=== PATIENT | male | born 1990 | race Caucasian/White ===

== ENCOUNTER 2019-01-10 19:17 | Emergency (ER) | payer BC, SELFPAY ==
[2019-01-10 19:18] VITALS: BP 167/103; PULSE 105; RESP 18; TEMP 36.7; O2SAT 100; BMI 26.7
--- NOTE | 2019-01-10 19:30 | US_ITS ---
HISTORY: Right-sided pain and swelling. No comparison imaging. 111 images. Real-time barcenas scale color Doppler pulse-wave Doppler images were obtained through the scrotum. Findings: Some fluid is present within the soft tissues of the scrotum superficial to the testis. This is likely a hydrocele. The right testis measures 2.9 x 5.5 x 2.9 cm Right testicular barcenas scale echotexture is heterogeneous with hypoechoic areas. Color Doppler imaging through the right testis suggests hyperemia. Pulse-wave Doppler imaging suggests arterial and venous flow within the right testicular parenchyma. The right epididymal head measures 19 x 11 mm. A tiny right epididymal cyst is present. The epididymis appears to be thickened and hyperemic on color Doppler and grayscale imaging. The left testis is more homogeneous in echotexture. Small left hydrocele is present. The left testis measures 4.8 x 2.4 x 2.9 cm. Color Doppler imaging suggests flow to the left testis, but it appears to be slightly less than that compared to the right. This is assuming color Doppler settings remains stable between the imaging of each testis which appears to be similar by the spectrum of the velocity optimized for the color Doppler imaging. Pulse-wave Doppler imaging suggests arterial flow and suggests probable venous flow within the left testicular parenchyma. The left epididymal head measures 10 x 8 mm. A small left epididymal cyst is present. Imaging of the left and right testis together in the same field of view suggests increased flow to the right testis. There is slight heterogeneity to the right testicular parenchymal echotexture compared to that of the left. US/Testicular with Arterial Flow IMPRESSION: Hyperemia to the right testis and minimal enlargement to the right testis compared to the left with slight enlargement of the right epididymis is well. The right epididymis also appears to be of increased vascularity and hyperemia compared to that of the left. These findings suggest right epididymoorchitis. No torsion. at 2035 Reported and signed by: Temo Ambrose MD Electronically Signed: Temo Ambrose MD at 20:34 EST Tel , Service support ,
[2019-01-10 19:54] LABS: Bacteria 0 SEEN /hpf (None Seen); Mucous, Urine 0 SEEN /hpf (<or=2+); Red Blood Cells-Urine 0 SEEN /hpf (0-5); Squamous Epithelial Cells - UA 0 SEEN /hpf (0-5); White Blood Cells 0 SEEN /hpf (0-5)
[2019-01-10 19:59] LABS: Color, Urine Yellow (Yellow); Glucose, Dipstick Normal (Normal); Ketone-Dipstick Negative (Negative); Leukocyte Esterase-Dipstick Negative /ul (Negative); Nitrite-Dipstick Negative (Negative); Occult Blood-Urine Negative /ul (Negative); Protein-Dipstick Negative (Negative); Urine Bilirubin Dipstick Negative (Negative); Urine Clarity Clear (Clear); Urine Urobilinogen Normal (Normal); Urine pH 6.5 (5.0 - 8.0)
--- NOTE | 2019-01-10 20:57 | ED.DCSUM_ITS ---
- ER Visit Summary Date of Service: 01/10/19 Chief Complaint: Testicular pain History of Present Illness: The patient is a 28 M with right testicular pain for 3 days. He reports pain and swelling. He was at the dentist getting a root canal. He thinks the way he was sitting caused irritation to his right testicle. No discharge, rash, or other associated symptoms. Physical Examination: Vitals unremarkable. Right testicle is diffusely tender and swollen. Test Results: Ultrasound shows right epididymal orchitis without torsion. Urinalysis negative. Gonorrhea and Chlamydia testing pending. Emergency Department Course and Treatment: Patient declined pain medicine. Ultrasound as above. No evidence to suggest torsion. History is not consistent with infection, but some trauma or irritation to the area, but given the possibility of occult infection, he was treated with ceftriaxone and doxycycline. Will refer to urology for follow-up. Treatment Plan: Continue antibiotics, doxycycline, for 10 days. Scrotal support, pain meds. Follow-up with urology. Disposition: Discharge Impression: 1. Right orchitis This note was generated with [employer] dictation software. It may contain incorrect words, spelling, and punctuation that were not noted in review of the chart prior to signing ED Disposition - Plan for ED Patient: Referrals: Nimo Lauren MD [Primary Care Provider] -
--- NOTE | 2019-01-10 20:59 | ED.DEP ---
ED Disposition - Plan for ED Patient: Instructions: Orchitis Prescriptions: Doxycycline 100 mg PO BID #20 cap Prescription Printed Naproxen [Naprosyn] 500 mg PO BID PRN #20 tab Prescription Printed Referrals: Yaron Dalal MD [STAFF PHYSICIAN] -
[2019-01-10 21:35] LABS: Chlamydia Trachomatis by PCR Negative (Negative); Neisserai gonorrhoeae by PCR Negative (Negative); Probe Check PASS; Sample Adequacy Control PASS; Specimen Processing Control PASS
[2019-01-10] MEDS: Ceftriaxone 500 MG Vial 250 MG IM (21:41)
[2019-01-10] MEDS: Doxycycline 100 MG CAPSULE PO (21:42)
[2019-01-10 21:44] VITALS: BP 181/89; PULSE 118; TEMP 38.2; O2SAT 100
[2019-01-10 22:04] VITALS: BP 164/79; PULSE 96; RESP 37; O2SAT 92
== END 2019-01-10 22:17 | disposition home or self-care (01) ==
PROVIDERS: Emergency Provider Emergency Medicine; Family Provider Family Medicine; PCP Family Medicine
DX: N45.2 Orchitis (principal)
CPT/HCPCS: 76870; 81001; 87491; 87591; 93976; 96372; 99283

== ENCOUNTER 2021-05-12 19:51 | Emergency (ER) | payer BC, SELFPAY ==
[2021-05-12 19:52] VITALS: BP 133/81; PULSE 84; RESP 16; TEMP 35.9; O2SAT 100; BMI 25.8
[2021-05-12] MEDS: 0.9% Normal Saline 1,000 ML 1000 ML IV (21:25)
[2021-05-12 21:51] LABS: Absolute Lymphocyte Count 1.98 X10^3/uL (0.83-4.51); Absolute Neutrophil Count 5.4 X10^3/uL (2.0-7.7); Basophil# 0.05 X10^3/uL; Basophil% 0.6 % (0-1); Eosinophil# 0.17 X10^3/uL; Hematocrit 45.2 % (40-54); Hemoglobin 16.6 g/dL (13.0-16.5); Lymphocyte # 1.98 X10^3/ul (0.83-4.51); Lymphocyte % 22.9 % (19-41); Mean Corp Hgb Conc 36.7 g/dL (32-36); Mean Corpuscular Hgb 30.9 pg (27.0-32.0); Mean Platelet Vol. 11.6 fl (6.2-12.0); Monocyte# 0.99 X10^3/uL; Monocyte% 11.5 % (0-10); NRBC Flagged by Analyzer 0 % (0-5); Neutrophil # 5.42 X10^3/uL (2.7-7.7); Neutrophil % 62.8 % (47-70); Platelet Count 177 K/mm3 (150-450); RBC Distribution Width CV 12.3 % (11.6-14.6); RBC Distribution Width SD 37.6 fl (35.1-43.9); Red Blood Count 5.38 M/mm3 (4.6-6.2); White Blood Count 8.6 K/mm3 (4.4-11.0)
[2021-05-12 22:18] LABS: ALB/GLOB Ratio 1.1 RATIO (0.9-2.4); AST(SGOT) 23 U/L (15-37); Alanine Aminotransfer ALT/SGPT 43 U/L (16-61); Alkaline Phosphatase 69 U/L (45-117); Anion Gap 6 (5-15); BUN 10 mg/dL (7-18); BUN/Creat Ratio 8.8 RATIO (10-20); Calcium,Total 9.3 mg/dL (8.5-10.1); Chloride 105 mmol/L (98-107); Creatinine, Serum 1.13 mg/dL (0.70-1.30); EST Glomerular Filtration Rate 81 mL/min (>60); Est Glom Filt Rate - Afr Amer 97 mL/min (>60); Estimated Creatinine Clearance 92.48 ml/min; Globulin 3.7 g/dL (2.2-4.2); Glucose 99 mg/dL (74-106); Potassium 3.3 mmol/L (3.5-5.1); Protein, Total 7.7 g/dL (6.4-8.2); Sodium Level 140 mmol/L (136-145)
--- NOTE | 2021-05-12 22:29 | EDS_ITS ---
HPI HPI - GI History of Present Illness Chief Complaint: GI Bleed Informant: patient Abdominal Pain/Flank Pain Onset: Days Context: Gradual Onset Timing: Intermittent Quality: Cramping Current Severity: Mild Maximum Severity: Mild Worsened by: Nothing Relieved by: Nothing Nausea/Vomiting/Emesis GI Symptom: Negative for Nausea and Vomiting Diarrhea/Melena/Hematochezia GI Symptom: Positive for Diarrhea Onset: Days Stool Quality: Positive for Watery Severity: Moderate Associated Symptoms Associated Symptoms: Negative for Dysuria, Frequency, Hematuria and Urgency Narrative Narrative: 30-year-old male no sniffing past medical or surgical history. States on Tuesday he started having diarrhea on Tuesday of fever as high as one 1.5. States he tried to hydrate as best he could but he felt like he was getting dehydrated. And said today he had some bright red blood per rectum. Small amount less than a shot glass. States he was having significant diarrhea 2-3 times an hour for around 24 to 48 hours. He has never had rectal bleeding before. He is on no blood thinners. He feels he may have had Salmonella. No recent travel. No surgery. No antibiotics. No recent hospitalization. Prior similar symptoms: No Recent Illness/Hospitalization: No PFSH PFSH Medical History no medical history no medical history Home Medications NK 05/12/21 [History Last Taken Unknown] Allergy/AdvReac Type Severity Reaction Status Date / Time Sulfa (Sulfonamide Allergy Unknown Verified 05/12/21 19:54 Antibiotics) Surgical History no surgical history no surgical history Social History Smoking Status: Never smoker ROS ROS ED ROS Narrative Diarrhea. Fever. Abdominal cramping. Review of Systems ROS Unobtainable: Denies due to encephalopathy Constitutional Constitutional ED: Reports fever(s) ENT ENT ED: Denies ear pain Cardiovascular Cardiovascular: Denies chest pain Respiratory/Chest Respiratory/Chest: Denies dyspnea Gastrointestinal Gastrointestinal: Reports abdominal pain and diarrhea; Denies constipation, melena, nausea or vomiting Genitourinary Genitourinary ED: Denies dysuria Musculoskeletal Musculoskeletal: Denies myalgias Integumentary Denies rash Neurologic Neurologic: Denies headache(s) Psychiatric Psychiatric: Denies depression Endocrine Endocrinology: Denies polyuria Hematologic/Lymphatic Hematologic/Lymphatic: Denies easy bruising EXAM Physical Exam Narrative Exam Narrative: 30-year-old male no acute distress. Vital signs are stable he is afebrile. Clinically looks well. H EENT exam unremarkable. Moist extremities. Neck nontender no lymphadenopathy. Lungs to auscultation bilaterally. Heart regular rate and rhythm no murmur. Rate about 85. Abdomen soft nondistended normal bowel sounds no peritoneal signs. No localizing tend erness. Extremities moves all 4. No rashes. No petechiae purpura. Back nontender. Neurologic exam normal. Const Vital Signs: 05/12/21 19:52 Temperature 96.7 F L Temperature Source Temporal Pulse Rate 84 Respiratory Rate 16 Blood Pressure 133/81 H Blood Pressure Mean 98 Pulse Ox 100 Oxygen Delivery Method Room Air Positive well nourished and well developed; Negative for obese, cachectic or contractures General Appearance ED: well developed; Negative for cachectic, contractures or pallor Nutritional Appearance: Negative for cachectic or obese HEENT Reports moist mucous membranes normocephalic; Negative for atraumatic Eyes PERRL and EOMs intact bilaterally General Eye ED: Negative for pale conjunctiva or scleral icterus Neck no lymphadenopathy, supple and no JVD General: Negative for tenderness Resp normal respiratory effort and clear to auscultation bilaterally Auscultation: Negative for rales, rhonchi or wheezes Cardio regular rate, regular rhythm, S1 normal heart sound, S2 normal heart sound and no murmurs GI non-tender, non-distended and no masses Auscultation: normoactive bowel sounds Palpation: soft; Negative for tender, guarding or rigid Back/Spine no CVA tenderness General Back: Negative for CVA tenderness Extremity full ROM General Extremety ED: Negative for edema or tenderness General Extremity: Negative for edema Neuro CN's II-XII intact bilaterally and moves all extremities Sensorium / Orientation: alert, oriented to person, oriented to place and oriented to time; Negative for orientation impaired, confused, lethargic or stuporous Motor Exam: strength 5/5 throughout Psych mental status grossly normal and thought process normal Mood & Affect: Negative for depressed Skin no wounds General Skin Exam: Negative for jaundice or pallor Lesions: no lesions Rashes: no rashes MDM MDM MDM Narrative Medical decision making narrative: 30-year-old male with a significant diarrhea and fever for 2 days. Treated with IV fluids for mild dehydration. Screening labs obtained. He had I discussed possibility of this being an inflammatory bowel disease but there is no family history and he is never had an episode like this before. His abdomen is benign I do not think he needs imaging tonight. He is comfortable with that not being done. Repeat exam patient is doing well at 10:38 PM. Abdomen is benign. He is comfortable being discharged home. Outpatient follow-up as needed. Lab Data Attestation: I reviewed the patient's lab results. Lab results narrative: CBC shows a white count 8 H&H of 16 and 45. Platelets are normal. Electrolytes show potassium of 3.3 normal anion gap of 6 normal BUN and creatinine of 10 and 1. Liver enzymes are normal. Labs: Laboratory Results - last 24 hr 05/12/21 05/12/21 21:03 21:03 WBC 8.6 RBC 5.38 Hgb 16.6 H Hct 45.2 MCV 84.0 MCH 30.9 MCHC 36.7 H RDW Std Deviation 37.6 RDW Coeff of Glenn 12.3 Plt Count 177 MPV 11.6 Immature Gran % (Auto) 0.200 Neut % (Auto) 62.8 Lymph % (Auto) 22.9 [place] % (Auto) 11.5 H Eos % (Auto) 2.0 Baso % (Auto) 0.6 Absolute Neuts (auto) 5.4 Absolute Lymphs (auto) 1.98 Nucleated RBC % 0 Sodium 140 Potassium 3.3 L Chloride 105 Carbon Dioxide 29.0 Anion Gap 6 BUN 10 Creatinine 1.13 Estim Creat Clear Calc 92.48 Est GFR (MDRD) Af Amer 97 Est GFR (MDRD) Non-Af 81 BUN/Creatinine Ratio 8.8 L Glucose 99 Calcium 9.3 Total Bilirubin 0.40 AST 23 ALT 43 Alkaline Phosphatase 69 Total Protein 7.7 Albumin 4.0 Globulin 3.7 Albumin/Globulin Ratio 1.1 Discharge Plan Triage Chief Complaint: GI Bleed ED Provider: Gopal Gale Dx/Rx/DC Orders Clinical Impression: Diarrhea, Viral enteritis, Hematochezia Instructions: ED Diarrhea, Viral (Adult) Prescriptions: No Action NK RF: 0 Primary Care Provider: Nimo Lauren Referrals: Nimo Lauren MD [Primary Care Provider] - 3-5 Days if not improving Activity Restrictions/Additional Instructions: Plenty of fluids and rest. Follow-up with your primary care physician if further rectal bleeding. Most likely this is a viral enteritis that caused her to have rectal bleeding. If the bleeding returns need further work-up such as a CAT scan and/or colonoscopy.
[2021-05-12 22:49] VITALS: BP 124/69; PULSE 73; RESP 15; O2SAT 98
== END 2021-05-12 22:50 | disposition home or self-care (01) ==
LOC: ED 21:29
PROVIDERS: Emergency Provider Emergency Medicine; PCP Family Medicine; Visit Provider Emergency Medicine
DX: A08.4 Viral intestinal infection, unspecified (principal); K92.1 Melena
CPT/HCPCS: 80053; 85025; 96360; 99282; J7030; A4216

== ENCOUNTER 2023-04-29 08:00 | Outpatient (RCR) | payer SELFPAY | END 2023-04-29 19:00 | disposition home or self-care (01) | LOC: PT 08:00 | PROVIDERS: PCP Family Medicine | DX: M25.519 Pain in unspecified shoulder (principal) ==

== ENCOUNTER → 2023-10-28 | Outpatient (CLI) | payer BC, SELFPAY ==
[2023-10-28 18:03] LABS: Absolute Lymphocyte Count 2.78 X10^3/uL (0.83-4.51); Absolute Neutrophil Count 2.8 X10^3/uL (2.0-7.7); Basophil# 0.05 X10^3/uL; Basophil% 0.8 % (0-1); Eosinophil# 0.14 X10^3/uL; Eosinophils% 2.3 % (0-5); Hematocrit 45.3 % (40-54); Hemoglobin 15.4 g/dL (13.0-16.5); Lymphocyte # 2.78 X10^3/ul (0.83-4.51); Lymphocyte % 45.2 % (19-41); Mean Corpuscular Hgb 29.7 pg (27.0-32.0); Mean Corpuscular Volume 87.3 fL (80-94); Mean Platelet Vol. 11.5 fl (6.2-12.0); Monocyte# 0.39 X10^3/uL; Monocyte% 6.3 % (0-10); NRBC Flagged by Analyzer 0 % (0-5); Neutrophil # 2.78 X10^3/uL (2.7-7.7); Neutrophil % 45.2 % (47-70); Platelet Count 196 K/mm3 (150-450); RBC Distribution Width CV 12.2 % (11.6-14.6); RBC Distribution Width SD 39.2 fl (35.1-43.9); Red Blood Count 5.19 M/mm3 (4.6-6.2); White Blood Count 6.2 K/mm3 (4.4-11.0)
[2023-10-28 18:52] LABS: ALB/GLOB Ratio 1.3 RATIO (0.9-2.4); AST(SGOT) 19 U/L (15-37); Alanine Aminotransfer ALT/SGPT 36 U/L (16-61); Albumin, Serum 4.3 g/dL (3.2-5.0); Alkaline Phosphatase 78 U/L (45-117); Anion Gap 5 (5-15); BUN 16 mg/dL (7-18); BUN/Creat Ratio 15.1 RATIO (10-20); Calcium,Total 9.9 mg/dL (8.5-10.1); Chloride 104 mmol/L (98-107); Creatinine, Serum 1.06 mg/dL (0.70-1.30); EST Glomerular Filtration Rate 85 mL/min (>60); Est Glom Filt Rate - Afr Amer 103 mL/min (>60); Globulin 3.4 g/dL (2.2-4.2); Glucose 94 mg/dL (74-106); Potassium 4.1 mmol/L (3.5-5.1); Protein, Total 7.7 g/dL (6.4-8.2); Sodium Level 140 mmol/L (136-145)
[2023-11-01 08:11] LABS: G6PD Quant Test 258 (127-427); Red Blood Cell Count Test/G6PD 5.26 x10E6/uL (4.14-5.80)
== END | disposition home or self-care (01) ==
PROVIDERS: PCP Family Medicine; Referring Provider Nurse Practitioner Family; Visit Provider Nurse Practitioner Family
DX: B60.09 Other babesiosis (principal); R53.83 Other fatigue
CPT/HCPCS: 80053; 82955; 85025

== ENCOUNTER → 2024-01-11 | Outpatient (CLI) | payer BC, SELFPAY ==
[2024-01-11 17:35] LABS: Absolute Lymphocyte Count 1.22 X10^3/uL (0.83-4.51); Absolute Neutrophil Count 3.5 X10^3/uL (2.0-7.7); Basophil# 0.05 X10^3/uL; Basophil% 0.9 % (0-1); Eosinophil# 0.03 X10^3/uL; Eosinophils% 0.6 % (0-5); Hematocrit 44.2 % (40-54); Hemoglobin 15.4 g/dL (13.0-16.5); Lymphocyte # 1.22 X10^3/ul (0.83-4.51); Lymphocyte % 23.1 % (19-41); Mean Corp Hgb Conc 34.8 g/dL (32-36); Mean Corpuscular Hgb 30.2 pg (27.0-32.0); Mean Corpuscular Volume 86.7 fL (80-94); Mean Platelet Vol. 10.4 fl (6.2-12.0); Monocyte# 0.48 X10^3/uL; Monocyte% 9.1 % (0-10); NRBC Flagged by Analyzer 0 % (0-5); Neutrophil % 66.1 % (47-70); Platelet Count 163 K/mm3 (150-450); RBC Distribution Width CV 12.2 % (11.6-14.6); RBC Distribution Width SD 38.6 fl (35.1-43.9); White Blood Count 5.3 K/mm3 (4.4-11.0)
[2024-01-11 17:44] LABS: ALB/GLOB Ratio 1.3 RATIO (0.9-2.4); AST(SGOT) 19 U/L (15-37); Alanine Aminotransfer ALT/SGPT 44 U/L (16-61); Albumin, Serum 4.1 g/dL (3.2-5.0); Alkaline Phosphatase 68 U/L (45-117); Anion Gap 3 (5-15); BUN 16 mg/dL (7-18); BUN/Creat Ratio 10.9 RATIO (10-20); Chloride 106 mmol/L (98-107); Creatinine, Serum 1.47 mg/dL (0.70-1.30); EST Glomerular Filtration Rate 58 mL/min (>60); Est Glom Filt Rate - Afr Amer 71 mL/min (>60); Globulin 3.1 g/dL (2.2-4.2); Glucose 109 mg/dL (74-106); Potassium 3.9 mmol/L (3.5-5.1); Protein, Total 7.2 g/dL (6.4-8.2); Sodium Level 140 mmol/L (136-145)
[2024-01-11 17:58] LABS: Erythrocyte Sedimentation Rate 1 mm/hr (0-20)
== END | disposition home or self-care (01) ==
LOC: LAB 17:18
PROVIDERS: PCP Internal Medicine; Referring Provider Internal Medicine; Visit Provider Internal Medicine
DX: R50.9 Fever, unspecified (principal)
CPT/HCPCS: 36415; 80053; 85025; 85652

== ENCOUNTER 2024-06-07 08:22 | Emergency (ER) | payer BC, SELFPAY ==
[2024-06-07 08:27] VITALS: BP 177/95; PULSE 121; RESP 18; TEMP 36.6; O2SAT 99; BMI 27.1
--- NOTE | 2024-06-07 08:33 | EX.ED.VIS.EY ---
HPI History of Present Illness Chief Complaint: Eye Problem Detail of Chief Complaint: Left homonymous hemianopsia, or for migraine, thought having a stroke Informant: patient Onset/Context/Timing Location: Bilateral Eyes (Left visual field loss, normal oral, felt anxious and like he was having a stroke after taking Nurtec ODT) Onset: Today and Hours Context: Sudden Onset Timing: Continuous Current Severity: Mild Maximum Severity: Severe Worsened by: [place] lightheaded, pressure, and left visual field cut Relieved by: Not applicable Associated Symptoms Associated Symptoms - Eyes: - (Left visual field cut due to migraine, not a new symptom); Negative for Burning, Crusting, Drainage, Eyelid swelling, Foreign body sensation, Itching, Matting, Pain, Photophobia or Redness Visual Changes: bilateral: Visual field cut (Left homonymous hemianopsia) History of injury: No Visual correction: Glasses Narrative Narrative: Patient is a 33-year-old male. He has history of migraine headaches. He developed some aura which is left visual field cut (left moderate hemianopsia) spoke Nurtec ODT for the first time to alleviate his headache. He developed symptoms of lightheadedness pressure and felt he was having a stroke. He states his vision is improving. He denies light sensitivity or sound sensitivity. He presently does not have a headache. He denied diaphoresis, chest pain or shortness of breath. He denies history of hypertension. He does endorse that he is anxious. He commented that he thought he was having a stroke. Prior similar symptoms: No Recent Illness/Hospitalization: No [facility] Medical History (Updated 06/07/24 @ 09:[address] David Landaverde MD) Ocular migraine Home Medications ?Medication ?Instructions ?Recorded ?Last Taken ?Type NK 05/12/21 Unknown History Allergy/AdvReac Type Severity Reaction Status Date / Time Sulfa (Sulfonamide Allergy Unknown Verified 05/12/21 19:54 Antibiotics) Social History Smoking Status: Never smoker ROS ROS ED Eyes Eyes: Reports change in vision bilateral (Left homonymous hemianopsia); Denies diplopia ENT ENT ED: Reports other Details: Denies trouble with speech or swallowing. ; Denies rhinorrhea or sore throat Cardiovascular Cardiovascular: Reports palpitations; Denies chest pain or racing heartbeat Respiratory/Chest Respiratory/Chest: Denies cough, dyspnea or dyspnea on exertion Gastrointestinal Gastrointestinal: Reports nausea; Denies abdominal pain or vomiting Integumentary Denies rash Neurologic Neurologic: Reports weakness; Denies headache(s) or paresthesias Hematologic/Lymphatic Hematologic/Lymphatic: Denies easy bleeding or easy bruising EXAM Physical Exam Const Vital Signs: 06/07/24 08:27 Temperature 98 F Temperature Source Oral Pulse Rate 121 H Respiratory Rate 18 Blood Pressure 177/95 H Blood Pressure Mean 122 Pulse Ox 99 Oxygen Delivery Method Room Air Positive well nourished and well developed Constitutional Narrative: Vital signs remarkable for hypertension and tachycardia. Patient is on the monitor. Has a narrow complex sinus tachycardia noted. General Appearance ED: well developed and NAD HEENT atraumatic Nose: external nose normal Eyes Eyes Narrative: Pupils equal round reactive. Extract muscle intact. Sclera is anicteric. His visual field cut is improving. By the end of the exam he states he was able to see the entire object in front of him. Neck no lymphadenopathy, supple and no JVD Resp normal respiratory effort Cardio regular rate, regular rhythm, S1 normal heart sound, S2 normal heart sound and no murmurs Neuro oriented x3, CN's II-XII intact bilaterally and no sensory deficits noted Neuro Narrative: There is no dysmetria. DTRs bicep, brachialis, patella and ankle are 2+ and symmetric. There is no clonus or Babinski sign. Sensorium / Orientation: alert Motor Exam: strength 5/5 throughout Psych Psych Narrative: Slightly anxious Skin no wounds Lesions: no lesions Rashes: no rashes MDM MDM MDM Narrative Medical decision making narrative: Suspect this is an adverse reaction to the Nurtec. Most common side effect is nausea at approximately 2%. Postmarketing reports of hypertension and Raynaud's. He is quite hypertensive and has no history of hypertension. Since patient's symptoms are improving and he has had prior visual field cuts we will observe. Will contact his physician regarding the reaction since he will need follow-up for different treatment for his migraines. History & Record Review Additional record(s) reviewed:: Prior outpatient record (Outpatient communication regarding referral for hemorrhoids.) and Prior ED visit (April 1999 for diarrhea. December 2018 for right testicular pain.) Management Discussion w/another healthcare provider: PCP (Spoke with Dr. Rakan Fernandez. She will follow-up with the patient. He is to contact her regarding treatment for migraine and not to use Nurtec in the future.) Treatment and Re-Evaluation Narrative: Most recent blood pressure is 147 systolic. He understands this is a reaction to the medicine. He had no questions. He was observed until 914 Discharge Plan Triage Chief Complaint: Eye Problem Other Complaint: Headache ED Provider: David Landaverde Dx/Rx/DC Orders Clinical Impression: Adverse drug reaction, Migraine aura without headache, Sinus tachycardia, Elevated blood-pressure reading without diagnosis of hypertension Instructions: ED Drug Reaction, Other Prescriptions: No Action NK Primary Care Provider: Cyn Camargo Referrals: Cyn Camargo MD [Primary Care Provider] - 5-7 Days Activity Restrictions/Additional Instructions: Do not take Nurtec for any future headaches or aura. Print Language: [place] Disposition Disposition: Home, Self Care
[2024-06-07 09:09] VITALS: BP 143/98; PULSE 80; RESP 14; O2SAT 99
[2024-06-07 09:42] VITALS: BP 140/90; PULSE 77; RESP 16; TEMP 36.6; O2SAT 99
== END 2024-06-07 09:44 | disposition home or self-care (01) ==
PROVIDERS: Emergency Provider Emergency Medicine; PCP Internal Medicine; Visit Provider Emergency Medicine
DX: H53.462 Homonymous bilateral field defects, left side (principal); R00.0 Tachycardia, unspecified; R03.0 Elevated blood-pressure reading, without diagnosis of hypertension; T50.995A Adverse effect of other drugs, medicaments and biological substances, initial encounter; G43.109 Migraine with aura, not intractable, without status migrainosus
CPT/HCPCS: 99284

== ENCOUNTER 2024-08-06 17:30 | Outpatient (RCR) | payer SELFPAY | END 2024-08-06 19:00 | disposition home or self-care (01) | LOC: PT 17:30 | PROVIDERS: PCP Internal Medicine | DX: Z00.00 Encounter for general adult medical examination without abnormal findings (principal) ==